=== PATIENT | female | born 1960 | race Caucasian/White ===

== ENCOUNTER → 2016-12-05 | Outpatient (CLI) | payer BC ==
[~2016-12-05] MED LIST: IOHEXOL 300 MG/ML 75ml INJECTION ONE; NORMAL SALINE 100 ML ONE; SALINE FLUSH 10ml SYRINGE ONE
--- NOTE | 2016-12-05 16:54 | DI ---
Indication: ITS.REASON: N20.0 Calculus of kidney PROCEDURE: CT RENAL W/WO CONTRAST: Encounter: Subsequent Comparison: Renal CT dated October 06, 2016 Technique: Axial CT images were performed through the abdomen and pelvis before and after the administration of intravenous contrast. Delayed postcontrast images were also performed. Coronal and sagittal 2-dimensional reformats. Automated Exposure Control and Iterative Reconstruction dose reducing techniques were utilized. Contrast: Omnipaque 300 67 mL Findings: The lung bases are clear. Noncontrast images show interval fragmentation of the lower pole right renal stone with two stone fragments now present measuring 4 and 5 mm. Left kidney stone is unchanged in appearance. There is continued right urothelial thickening in the renal pelvis and proximal ureter. No definite ureteral stone however. The bladder appears grossly normal. Postcontrast images show normal enhancement of the liver. The gallbladder is unremarkable. The spleen, pancreas and adrenal glands are grossly normal. The left kidney enhances normally. The right kidney shows hypoenhancement in the posterior aspect of the lower pole. There is also some stranding in the overlying right flank musculature and subcutaneous tissues that could relate to prior interventions. No enhancing renal mass or true hydronephrosis. No abdominal or pelvic lymphadenopathy. No enhancement within the bladder. Uterus is absent. Minimal intra-abdominal fat and lack of oral contrast severely limiting evaluation of the bowel. No gross bowel obstruction. Moderate stool throughout the colon. Postoperative changes in the lumbar spine. Delayed postcontrast images show symmetric excretion of contrast by both renal collecting systems. The ureters are normal in course and caliber where visible. The mid to distal portions of the ureters are unopacified and cannot be visualized. The partially opacified urinary bladder again appears normal. Bone windows are stable with severe degenerative change at L3-L4 and a stable sclerotic focus probably representing a bone island in the L2 vertebra. Impression: 1. Interval fragmentation of the right lower pole renal stone. 2. New areas of hypoenhancement in the lower pole of the right kidney. This could be due to small areas of contusion from prior lithotripsy or less likely a localized pyelonephritis. .
== END ==
LOC: IMA 15:43
PROVIDERS: ATTEND Internal Medicine
DX: N20.0 Calculus of kidney (principal); R93.421 Abnormal radiologic findings on diagnostic imaging of right kidney; Z98.890 Other specified postprocedural states
CPT/HCPCS: 74178; J7050; Q9967